=== PATIENT | female | born 1985 | race Caucasian/White ===

== ENCOUNTER 2017-03-30 17:02 | Emergency (ER) | payer OTHER ==
[~2017-03-30] VITALS: Ht 167.6 cm; Wt 59.3 kg
[~2017-03-30 17:02] MED LIST: AMOX500C5 PO; DOCU100C8 PO; FERR-74 PO; FERR325C PO; HC A RC; HYDR-3811 PO; HYDR28.336 RC; IBUP-1772 PO; LIDOVISC MT; NAPR220C11 PO; OXYC1TAB87 PO; PREN-94 PO; RANI150C4 PO
[2017-03-30] MEDS ORDERED: SODIUM CHLORIDE FLUSH 10 ML SYR IV PRN (17:20)
[2017-03-30] MEDS ORDERED: SODIUM CHLORIDE FLUSH 3 ML SYR IV ONE (17:20)
[2017-03-30] MEDS ORDERED: KETOROLAC 30 MG/ML (TORADOL) 1 ML VIAL IV ONE (17:20)
[2017-03-30] MEDS ORDERED: ONDANSETRON 2 MG/ML (Z0FRAN) 2 ML VIAL IV ONE (17:20)
[2017-03-30 17:39] LABS: BILIRUBIN,URINE Negative (Negative); CLARITY,URINE Clear; COLOR,URINE Yellow; GLUCOSE, URINE (UA) Negative (Negative); LEUKOCYTE ESTERASE ,URINE Negative (Negative); UROBILINOGEN,URINE 0.2 mg/dL (0.2-1.0)
[2017-03-30 17:40] LABS: BASOPHILS % (AUTO) 0 % (0-2); EOSINOPHILS # (AUTO) 0.1 10^3uL; EOSINOPHILS % (AUTO) 1 % (0-4); LYMPHOCYTES # (AUTO) 1.1 X10^3; MEAN CORPUSCULAR HEMOGLOBIN 30.9 PG (26.0-34.0); MEAN CORPUSCULAR HGB CONC 33.5 g/dL (31.0-37.0); MEAN CORPUSCULAR VOLUME 92 FL (80-100); MEAN PLATELET VOLUME 9.6 FL (6.0-9.5); MONOCYTES # (AUTO) 0.5 X10^3; MONOCYTES % (AUTO) 5 % (3-11); NEUTROPHILS # (AUTO) 7.7 X10^3; NEUTROPHILS % (AUTO) 82 % (51-67); PLATELET COUNT 312 10^3uL (150-450); WHITE BLOOD COUNT 9.48 10^3uL (4.0-11.0)
[2017-03-30 17:45] LABS: HCG,QUALITATIVE URINE Negative (Negative)
[2017-03-30 17:48] LABS: ALBUMIN 4.2 g/dL (3.4-5.0); ANION GAP 14.1 MEQ/L (3-15); TOTAL PROTEIN 7.1 g/dL (6.4-8.5)
--- NOTE | 2017-03-30 18:17 | Diagnostic Imaging Report ---
CLINICAL INDICATION: Patient complains of right flank pain for 10-12 hours. EXAM: CT exam of the abdomen and pelvis is performed without IV or oral contrast using stone protocol. Coronal and sagittal reformatted images were created. COMPARISONS: None. FINDINGS: Visualized lung bases: Unremarkable. Liver: Unremarkable as visualized. Gallbladder: Unremarkable. Pancreas: Unremarkable as visualized. Spleen: Unremarkable as visualized. Adrenal glands: Unremarkable. Kidneys/ ureters: There is moderate to severe right hydronephrosis with abrupt change in caliber at the right UPJ junction. There is no urinary tract stones or stone in the right ureter. Otherwise, both kidneys are unremarkable. There is no left hydronephrosis or left urinary tract stones. Aorta: Unremarkable as visualized. Intraabdominal/ retroperitoneal contents: Unremarkable. Intestines: Unremarkable as visualized. There is a small to moderate amount of stool seen throughout the colon. Appendix: Unremarkable. Bladder: Unremarkable as visualized. Pelvic organs: Unremarkable as visualized. Extra abdominal/ pelvis regions: Unremarkable. Abdominal wall: Unremarkable. Bones: Unremarkable. IMPRESSION: 1: There is moderate to severe right hydronephrosis with abrupt change in caliber at the right UPJ concerning for UPJ obstruction. There are no urinary tract stones. The left kidney is unremarkable. 2: The remainder of this CT exam is unremarkable. Dictated by: Dictated on workstation # [id number]
--- NOTE | 2017-03-30 18:40 | NUR ---
dr gillian lebron contacted from [email or web address], urologist research associate quality control [facility]
[2017-03-30] MEDS ORDERED: OXYC1TAB87 PO (18:49)
[2017-03-30] MEDS ORDERED: ONDAN4ODT PO (18:49)
[2017-03-30 19:03] VITALS: BP 115/73
== END 2017-03-30 18:56 | disposition home or self-care (01) ==
LOC: ED 17:04
DX: N13.30 Unspecified hydronephrosis (principal)
CPT/HCPCS: 36415; 74176; 80053; 81003; 81025; 85025; 96361; 96374; 96375; 99284; J1885; J2405; J7030; 99283